=== PATIENT | female | born 1940 | race Caucasian/White ===

== ENCOUNTER 2016-11-12 05:05 | Day surgery (SDC) | payer BC ==
[~2016-11-12 05:05] MED LIST: CALTRA600D PO; CYMBALTA30 PO; MELATONIN10 M2 PO; NEUR100 PO; NORCO1 TA1 PO; PRILO PO; ULTRAM50 PO; VITC500 PO; XANAX1 MG PO
== END 2016-11-12 07:11 | disposition home or self-care (01) ==
LOC: SDC 05:05
PROVIDERS: Orthopaedic Surgery
PROC: B01BZZZ Fluoroscopy of Spinal Cord (ICD-10-PCS; 2016-11-12)
PROC: 3E0R3BZ Introduction of Anesthetic Agent into Spinal Canal, Percutaneous Approach (ICD-10-PCS; principal; 2016-11-12 07:30)
DX: M54.16 Radiculopathy, lumbar region (principal); M19.90 Unspecified osteoarthritis, unspecified site; K21.9 Gastro-esophageal reflux disease without esophagitis; F41.9 Anxiety disorder, unspecified; Z90.49 Acquired absence of other specified parts of digestive tract; Z87.442 Personal history of urinary calculi; Z90.710 Acquired absence of both cervix and uterus; Z79.899 Other long term (current) drug therapy; Z98.890 Other specified postprocedural states
CPT/HCPCS: J1040; J2250; J2405; J3010; Q9967